=== PATIENT | female | born 1945 ===

== ENCOUNTER 2021-05-05 05:55 | Day surgery (SDC) | payer OTHER ==
[~2021-05-05 05:55] MED LIST: CARDURA8 MG PO; CHILDREN'S ASPI81 MG PO; GLUMETZA500 MG PO; QUINAPRIL HCL20 MG PO; SIMVASTA PO; [UNRECOGNIZED DRUG - OTHER] PO; [UNRECOGNIZED DRUG - OTHER] PO
[2021-05-05] MEDS ORDERED: ULTRACET PO (08:44)
[2021-05-05] MEDS ORDERED: MACROBID 100 M100 MG PO (08:45)
== END 2021-05-05 14:20 | disposition home or self-care (01) ==
LOC: CIR.AMB 05:55
PROVIDERS: ATTEND Obstetrics & Gynecology Gynecology
DX: N81.11 Cystocele, midline (principal); I10 Essential (primary) hypertension